=== PATIENT | female | born 1960 | race Caucasian/White ===

== ENCOUNTER → 2016-05-20 | Outpatient (CLI) | payer OTHER ==
[~2016-05-20] MED LIST: ATV1 PO; BUDESUS; CINN1CAP2 PO; ESTR0.07 TD; FEXO1TAB46 PO; IMT50 PO; OLIV1OIL5 PO; OMEGCAP2 PO; [UNRECOGNIZED DRUG - CODE] PO; [UNRECOGNIZED DRUG - OTHER] PO
[2016-05-20 09:33] LABS: MEAN CELL VOLUME 95.7 fL (80-100); MEAN CORPUSCULAR HEMOGLOBIN 32.7 pg (25-34); MEAN CORPUSCULAR HGB CONC 34.2 g/dl (32-36); MEAN PLATELET VOLUME 10.5 fL (7.4-10.4); PLATELET COUNT 223 K/uL (130-400); RED BLOOD COUNT 3.97 M/uL (4.2-5.4); WHITE BLOOD COUNT 4.38 K/uL (4.8-10.8)
[2016-05-20 09:45] LABS: ALT/SGPT 28 U/L (12-78); BLOOD UREA NITROGEN 13 mg/dl (7-18); CARBON DIOXIDE 27 mmol/L (21-32); CHLORIDE 105 mmol/L (98-107); CHOLESTEROL 207 mg/dl (0-200); GLUCOSE 95 mg/dl (70-99); POTASSIUM 4.1 mmol/L (3.5-5.1); SODIUM 140 mmol/L (136-145); TRIGLYCERIDES 134 mg/dl (0-150); VERY LOW DENSITY LIPOPROT CALC 27 mg/dl
[2016-05-20 09:49] LABS: ALB/GLOB RATIO 1.1 (0.9-2); ALKALINE PHOSPHATASE 59 U/L (45-117); AST/SGOT 18 U/L (15-37); CHOLESTEROL/HDL RATIO 2.8; HDL CHOLESTEROL 75 mg/dl; LDL CHOLESTEROL CALCULATED 105 mg/dl
== END | disposition home or self-care (01) ==
LOC: C.LAB1850 07:06
PROVIDERS: ATTEND Family Medicine
DX: Z00.00 Encounter for general adult medical examination without abnormal findings (principal); Z13.220 Encounter for screening for lipoid disorders

== ENCOUNTER → 2016-08-02 | Outpatient (CLI) | payer OTHER | END | disposition home or self-care (01) | LOC: C.PAPS 14:49 | PROVIDERS: ATTEND Obstetrics & Gynecology | DX: Z12.4 Encounter for screening for malignant neoplasm of cervix (principal) ==

== ENCOUNTER → 2016-08-02 | Outpatient (CLI) | payer OTHER | END | disposition home or self-care (01) | LOC: C.LAB1850 11:26 | PROVIDERS: ATTEND Family Medicine | DX: Z11.59 Encounter for screening for other viral diseases (principal) ==

== ENCOUNTER → 2016-08-27 | Outpatient (CLI) | payer OTHER ==
--- NOTE | 2016-08-27 15:24 | MAMMOGRAPHY REPORT ---
BILATERAL DIGITAL SCREENING MAMMOGRAM TOMOSYNTHESIS WITH CAD: 08/27/2016 TECHNIQUE: Breast tomosynthesis in addition to standard 2D mammography was performed. Current study was also evaluated with a Computer Aided Detection (CAD) system. COMPARISON: Comparison is made to exams dated: 08/27/2015 mammogram, 04/30/2013 mammogram, 04/26/2012 mammogram, 11/20/2010 mammogram, 11/17/2009 mammogram - [facility], and 08/14/2008. BREAST COMPOSITION: The tissue of both breasts is heterogeneously dense, which may obscure small ma sses. FINDINGS: No suspicious masses, calcifications, or areas of architectural distortion are noted in e ither breast. There has been no significant interval change compared to prior exams. IMPRESSION: ACR BI-RADS CATEGORY 1: NEGATIVE There is no mammographic evidence of malignancy. A 1 year screening mammogram is recommended. The p atient will receive written notification of the results. Approximately 10% of breast cancers are not detected with mammography. A negative mammographic repor t should not delay biopsy if a clinically suggestive mass is present. Elaina Montoya M.D. /:08/27/2016 14:48:00 Automation And Controls Manager: Natalie FAROOQ(Juana)(Best), [facility] letter sent: Normal 1/2 BI-RADS Code: ACR BI-RADS Category 1: Negative
== END | disposition home or self-care (01) ==
LOC: C.MAMM 13:19
PROVIDERS: ATTEND Obstetrics & Gynecology
DX: Z12.31 Encounter for screening mammogram for malignant neoplasm of breast (principal)

== ENCOUNTER → 2017-08-10 | Outpatient (CLI) | payer OTHER | END | disposition home or self-care (01) | LOC: C.PAPS 11:30 | PROVIDERS: ATTEND Obstetrics & Gynecology | DX: Z12.4 Encounter for screening for malignant neoplasm of cervix (principal) ==

== ENCOUNTER 2019-04-30 07:47 | Observation (INO) ==
--- NOTE | 2019-04-06 08:59 | PAT Medication Instructions ---
Medication Instructions Date of Service April 06, 2019 Home Medications Medication Instructions Recorded lorazepam 1 mg tablet 1 mg PO HS PRN #30 tab 03/16/19 sumatriptan succinate 50 mg tablet 50 mg PO Q2H PRN #9 tab 03/16/19 cholecalciferol (vitamin D3) 25 mcg (1,000 unit) capsule 1,000 mcg PO HS conjugated estrogens 0.3 mg tablet 0.3 mg PO QAM progesterone micronized 100 mg capsule 100 mg PO QAM lorazepam 1 mg tablet 1 mg PO HS PRN sumatriptan succinate 50 mg tablet 50 mg PO Q2H PRN Calcium 600 1,200 mg PO HS Cbd Oil 1 dose SUBLINGUAL QAM Juice Plus 3 tab PO BID cinnamon bark [Cinnamon] 500 mg PO QAM coQ10 (ubiquinol) 100 mg PO HS coconut oil 1,000 mg PO HS glucos sul [id number]-vby-syvee-C-Mn [Glucosamine Chondroitin] 1 cap PO BID ibuprofen [Advil] 400 mg PO Q6H PRN lactobacillus combination no.4 [Probiotic] 3,000 mmu cells PO QAM magnesium oxide 400 mg PO HS naproxen sodium [Aleve] 440 mg PO DAILY PRN omega 6-aow-nje-fish oil [Fish Oil] 1 cap PO HS vitamin B complex 1 tab PO HS ASK your surgeon for instructions naproxen sodium [Aleve] 440 mg PO DAILY PRN conjugated estrogens 0.3 mg tablet 0.3 mg PO QAM progesterone micronized 100 mg capsule 100 mg PO QAM STOP taking 2 weeks before surgery (or as soon as possible if surgery is within 2 weeks) Juice Plus 3 tab PO BID cinnamon bark [Cinnamon] 500 mg PO QAM coQ10 (ubiquinol) 100 mg PO HS coconut oil 1,000 mg PO HS glucos sul [id number]-ikp-pizjr-C-Mn [Glucosamine Chondroitin] 1 cap PO BID omega 1-qni-jge-fish oil [Fish Oil] 1 cap PO HS DO NOT take the morning of surgery lactobacillus combination no.4 [Probiotic] 3,000 mmu cells PO QAM Cbd Oil 1 dose SUBLINGUAL QAM Take morning of surgery With a small sip of water, OTHERWISE NOTHING TO EAT OR DRINK AFTER MIDNIGHT: sumatriptan succinate 50 mg tablet 50 mg PO Q2H PRN (if needed) Take evening before surgery cholecalciferol (vitamin D3) 25 mcg (1,000 unit) capsule 1,000 mcg PO HS lorazepam 1 mg tablet 1 mg PO HS PRN (if needed) sumatriptan succinate 50 mg tablet 50 mg PO Q2H PRN (if needed) Calcium 600 1,200 mg PO HS magnesium oxide 400 mg PO HS vitamin B complex 1 tab PO HS Other Notes If you have any questions please call us at [phone] or [phone] or [phone] or [phone]
--- NOTE | 2019-04-09 09:53 | Anesthesiology Consultation ---
Date of Service April 09, 2019 Assessment & Plan (1) Encounter for pre-operative examination: - Awaiting review of preop testing (labs, CXR). - PCP: 04/02/19: "Pending results of the patient's blood work I feel that she is within acceptable medical risk for her procedure scheduled on 04/30/2019." Chart Review Chart Review: Patient seen in Pre Admission Testing Teaching & Discussion Pre-Anesthesia Teaching/Discussion Notes: Instructed NPO after midnight before surgery,except medications with 15 cc of water. Medication instructions provided according to the PAT guidelines. History Surgery Operation Date: 04/30/19 12:20 Proposed Procedures p Right Total Knee Arthroplasty - Earnest S Christian Height/Weight Height: 5 ft 7.5 in Weight: 89.6 kg Allergies Allergy/AdvReac Type Severity Reaction Status Date / Time Penicillins Allergy Intermediate SWELLING,HI Verified 04/05/19 09:48 VES adhesive Allergy Unknown SKIN Verified 04/05/19 09:48 IRRITATION WITH BANDAIDS FRUIT Allergy Unknown RAW STONE Uncoded 04/05/19 09:48 FRUIT-SWELLING, HIVES Medications Home Medications Medication Instructions Recorded Confirmed Last Taken cholecalciferol (vitamin D3) 25 1,000 mcg PO HS 03/15/19 04/05/19 Unknown mcg (1,000 unit) capsule conjugated estrogens 0.3 mg tablet 0.3 mg PO QAM 03/15/19 04/05/19 Unknown progesterone micronized 100 mg 100 mg PO QAM 03/15/19 04/05/19 Unknown capsule lorazepam 1 mg tablet 1 mg PO HS PRN #30 tab 03/16/19 04/05/19 Unknown sumatriptan succinate 50 mg tablet 50 mg PO Q2H PRN #9 tab 03/16/19 04/05/19 Unknown Calcium 600 1,200 mg PO HS 04/05/19 04/05/19 Unknown Cbd Oil 1 dose SUBLINGUAL QAM 04/05/19 04/05/19 Unknown Juice Plus 3 tab PO BID 04/05/19 04/05/19 Unknown cinnamon bark [Cinnamon] 500 mg PO QAM 04/05/19 04/05/19 Unknown coQ10 (ubiquinol) 100 mg PO HS 04/05/19 04/05/19 Unknown coconut oil 1,000 mg PO HS 04/05/19 04/05/19 Unknown glucos sul 3KOq-dgd-odiwd-C-Mn 1 cap PO BID 04/05/19 04/05/19 Unknown [Glucosamine Chondroitin] ibuprofen [Advil] 400 mg PO Q6H PRN 04/05/19 04/05/19 Unknown lactobacillus combination no.4 3,000 mmu cells PO QAM 04/05/19 04/05/19 Unknown [Probiotic] magnesium oxide 400 mg PO HS 04/05/19 04/05/19 Unknown naproxen sodium [Aleve] 440 mg PO DAILY PRN 04/05/19 04/05/19 Unknown omega 5-nat-ewe-fish oil [Fish Oil] 1 cap PO HS 04/05/19 04/05/19 Unknown vitamin B complex 1 tab PO HS 04/05/19 04/05/19 Unknown Past Medical History Medical History Arthritis Insomnia Migraine Exercise / Class Metabolic Activity II 4-5 Yardwork/Stairs/Walk up hill Past Family History Family History Mother Diabetes Father Atrial fibrillation Heart disease Osteoarthritis Family history of reaction to anesthesia PONV Sister No problems noted. Sister Hypothyroidism Past Surgical History Surgical History History of colonoscopy History of mandibular surgery "WIRED SHUT" (2/2 MALOCCLUSION) S/P tonsillectomy Past Anesthesia History No Hx of Anesthesia Complications (but patient reports "sensitive stomach") and No Family Hx of Anesthesia Complications History of PONV No Hx of PONV and No Hx of Motion Sickness Social History Smoking Status: Never smoker Do You Dip or Chew Tobacco: No Hx Alcohol Use: Yes Alcohol type: wine and hard liquor alcohol intake frequency: a few times a week Hx Substance Use: Yes substance use type: other Substance Use Type Other:: OTC CBD OIL SUBLINGUAL QAM Review of Systems Patient denies chest pain, shortness of breath, dyspnea on exertion, reflux, cough, wheezing, palpitations. Physical Exam Vital Signs VITALS BP 107/73 P 74 TEMP 98.3 SP02 97%RA RESP 16 PHYSICAL Full neck and c-spine range of motion. Full TMJ range of motion. TMD 3 finger breaths Mallampati Score 2 Dentition: intact, 4 crowns, implant on upper front left side tooth Lungs: clear throughout to auscultation Cardiac: regular rate and rhythm, no murmurs noted Spine: normal Carotid arteries: negative bruit Extremities: no edema Testing Laboratory Results 04/02/19 WBC 4.91 H/H 13.9/41.7 PLATELETS 255 SODIUM 138 POTASSIUM 4.0 CHLORIDE 104 CO2 29 BUN 14 CREATININE 0.89 GLUCOSE 95 TSH 2.910 Electrocardiogram Date: 04/02/19 SR at 64bpm.
[2019-04-09 10:32] LABS: Appearance Urine Clear (Clear); Bilirubin Urine Negative (Negative); Blood Urine Negative (Negative); Color Urine Yellow; Glucose Urine UA Negative (Negative); Ketones Urine Negative (Negative); Leukocyte Esterase Urine Negative (Negative); Nitrite Urine Negative (Negative); Protein Urine Negative (Negative); Specific Gravity Urine 1.007 (1.000-1.030); Urobilinogen Urine Negative (Negative); pH Urine 6.5 (4.5-7.5)
--- NOTE | 2019-04-09 10:36 | XRay Report ---
XR chest Pre-admission PA/Lat CLINICAL HISTORY: Preoperative chest COMPARISON STUDY: No previous studies for comparison. FINDINGS: The cardiac and mediastinal contours are normal. There is no evidence of focal pulmonary co nsolidation. There is no evidence of failure. No pleural effusions are visualized.[ IMPRESSION: No active disease in the chest. ACT 112: Negative or not required by law. Electronically signed by: Lalit Scanlon M.D. 04/09/2019 10:35 AM
[2019-04-09 10:42] LABS: Partial Thromboplastin Ratio 0.8; Prothrombin Time 10.3 Seconds (9.0-12.0)
[2019-04-09 13:04] LABS: Albumin Level 3.7 gm/dl (3.4-5.0); BUN Creatinine Ratio 18.9 (10-20); Calcium 9.4 mg/dl (8.5-10.1); Creatinine Clr Calc Pharmacy 78.4 ml/min; Est GFR (African American) 79.6; Est GFR (Non-African American) 68.7; Potassium 4.3 mmol/L (3.5-5.1)
[2019-04-09 13:05] LABS: Albumin Globulin Ratio 0.9 (0.9-2); Bilirubin,Total 0.6 mg/dl (0.2-1); Globulin 3.9 gm/dl (2.5-4.0); Total Protein 7.6 gm/dl (6.4-8.2)
--- NOTE | 2019-04-27 13:16 | History & Physical Report ---
Date of Service April 27, 2019 Assessment & Plan (1) Degenerative joint disease of right knee: plan is to be admitted and undergo right tka. Pt plans on home discharge History of Present Illness Chief Complaint: right knee pain Primary Care Provider: Gloria Cotto MD Pt has had right knee pain for years. cant do adls. limping constantly. has tried nsaids and PT without relief. Allergies Allergy/AdvReac Type Severity Reaction Status Date / Time Penicillins Allergy Intermediate SWELLING,HI Verified 04/05/19 09:48 VES adhesive Allergy Unknown SKIN Verified 04/05/19 09:48 IRRITATION WITH BANDAIDS FRUIT Allergy Unknown RAW STONE Uncoded 04/05/19 09:48 FRUIT-SWELLING, HIVES Home Medications Home Medications Medication Instructions Recorded Confirmed Type cholecalciferol (vitamin D3) 25 1,000 mcg PO HS 03/15/19 04/05/19 History mcg (1,000 unit) capsule conjugated estrogens 0.3 mg tablet 0.3 mg PO QAM 03/15/19 04/05/19 History progesterone micronized 100 mg 100 mg PO QAM 03/15/19 04/05/19 History capsule lorazepam 1 mg tablet 1 mg PO HS PRN #30 tab 03/16/19 04/05/19 Rx sumatriptan succinate 50 mg tablet 50 mg PO Q2H PRN #9 tab 03/16/19 04/05/19 Rx Calcium 600 1,200 mg PO HS 04/05/19 04/05/19 History Cbd Oil 1 dose SUBLINGUAL QAM 04/05/19 04/05/19 History Juice Plus 3 tab PO BID 04/05/19 04/05/19 History cinnamon bark [Cinnamon] 500 mg PO QAM 04/05/19 04/05/19 History coQ10 (ubiquinol) 100 mg PO HS 04/05/19 04/05/19 History coconut oil 1,000 mg PO HS 04/05/19 04/05/19 History glucos sul 9CCb-mks-bazfk-C-Mn 1 cap PO BID 04/05/19 04/05/19 History [Glucosamine Chondroitin] ibuprofen [Advil] 400 mg PO Q6H PRN 04/05/19 04/05/19 History lactobacillus combination no.4 3,000 mmu cells PO QAM 04/05/19 04/05/19 History [Probiotic] magnesium oxide 400 mg PO HS 04/05/19 04/05/19 History naproxen sodium [Aleve] 440 mg PO DAILY PRN 04/05/19 04/05/19 History omega 2-lxh-ung-fish oil [Fish Oil] 1 cap PO HS 04/05/19 04/05/19 History vitamin B complex 1 tab PO HS 04/05/19 04/05/19 History Past Med/Surg History Medical History Arthritis Insomnia Migraine Surgical History History of colonoscopy History of mandibular surgery "WIRED SHUT" (2/2 MALOCCLUSION) S/P tonsillectomy Family History Mother Diabetes Father Atrial fibrillation Heart disease Osteoarthritis Family history of reaction to anesthesia PONV Sister No problems noted. Sister Hypothyroidism Social History (Updated 03/16/19 @ 15:38 by Heidi Cevallos) Preferred Language: Korean Communication Ability: Effective Visual Impairment: No Limitations Hearing Ability: Normal Liquor Tester Required: No Beliefs That Will Affect Care: None marital status: Current Living Situation: Spouse current occupational status: employed current occupation: Program Strategist Other Information That Helps Us Care for You: No Feels Safe at Home: Yes Safety Concerns: Feels Safe At This Time Smoking Status: Never smoker Do You Dip or Chew Tobacco: No ; Second Hand Exposure: No ; Hx Alcohol Use: Yes Alcohol type: wine and hard liquor Alcohol Intake Frequency: Weekly Hx Substance Use: Yes substance use type: other Substance Use Type Other:: OTC CBD OIL SUBLINGUAL QAM Dental Care, Regularly: Yes Physical Activity Frequency: 3-4 Times per Week Seatbelt Use: always Sunscreen Use: Yes Review of Systems All systems reviewed & are unremarkable except as noted in HPI & below Physical Exam Constitutional: WD/WN, vitals as above Neck: trachea midline, no thyromegaly Respiratory: normal respiratory effort, lungs clear to auscultation Cardiovascular: RRR, no murmur, no edema Gastrointestinal (Abdomen): normal bowel sounds, soft, nontender, no hepatosplenomegaly Musculoskeletal: Knee: + limited ROM of knee, + knee ROM with crepitation, + joint line tenderness and + varus alignment
[~2019-04-30 07:47] MED LIST changes: +ACETAMINOPHEN 500 MG TAB PO SCH; -ATV1 PO; -BUDESUS; +BUPIVACAINE 0.5 % 5 MG/1 ML PF 10ML VIAL ONE; +CEFAZOLIN 2000MG 2,000 MG/15 ML SYR IV SCH; -CINN1CAP2 PO; +CeleBREX 200 MG CAP PO SCH; -ESTR0.07 TD; +FAMOTIDINE 20 MG TAB PO SCH; -FEXO1TAB46 PO; -IMT50 PO; +LR 500ML BOLUS, THEN 15ML/HR IV SCH; +METOCLOPRAMIDE HCL 10 MG TABLET PO SCH; -OLIV1OIL5 PO; -OMEGCAP2 PO; +ROPIVACAINE 0.5% 5 MG/ML 30 ML VIAL ONE; +ROPIVACAINE 0.5% HCL/PF 150 MG, BUPIVACAINE 0.5% MPF 30 ML, EPINEPHrine 30MG/30ML (OR U... INSTIL SCH; +TRANEXAMIC ACID / 0.7% NACL 1,000 MG/100 ML BAG IV SCH; +TRANEXAMIC ACID 1,000 MG **IV Intra-op IV SCH; -[UNRECOGNIZED DRUG - CODE] PO; -[UNRECOGNIZED DRUG - OTHER] PO; +dexAMETHasone 4 MG TAB PO SCH
[2019-04-30] MEDS ORDERED: LIDOCAINE HCL 2% 2 ML VIAL/AMP(20MG/ML) INFIL ONE (08:42)
[2019-04-30] MEDS ORDERED: PROPOFOL IV EMULSION 10 MG/ML 20 ML VIAL IV ONE ×2 (08:42→11:25)
[2019-04-30] MEDS ORDERED: MIDAZOLAM HCL 1 MG/ML 2ML VIAL ONE ×2 (08:43→10:34)
--- NOTE | 2019-04-30 09:16 | History & Physical Bridge Note ---
Date of Service April 30, 2019 History & Physical Bridge Note I have examined the patient, reviewed the History & Physical and in the interval since the performance of the History & Physical I have noted the following changes of clinical significance: no changes noted
[2019-04-30] MEDS ORDERED: HYDROmorphone INJ 1 MG/ML SYRINGE IV PRN (09:22)
[2019-04-30] MEDS ORDERED: KETOROLAC 30 MG/ML VIAL IV PRN (09:22)
[2019-04-30] MEDS ORDERED: ePHEDrine sulfate 50 MG/ML AMP IV PRN (09:22)
[2019-04-30] MEDS ORDERED: ONDANSETRON INJ 2 MG/ML 2 ML VIAL IV PRN ×2 (09:22→13:22)
[2019-04-30] MEDS ORDERED: ATROPINE SULFATE 0.1 MG/ML 10ML SYR IV PRN (09:22)
[2019-04-30] MEDS ORDERED: CEFAZOLIN 2,000 MG/15 ML IV PUSH IV ONE (09:28)
[2019-04-30] MEDS ORDERED: CEFAZOLIN 2000MG 2,000 MG/15 ML SYR IV ONE (09:32)
[2019-04-30] MEDS ORDERED: BACITRACIN INJ 50,000 UNIT VIAL ONE ×2 (09:49→10:02)
[2019-04-30] MEDS ORDERED: ORTHO JOINT ANESTHETIC ONE (09:49)
[2019-04-30] MEDS ORDERED: ePHEDrine sulfate 50 MG/ML SYR ONE (11:08)
--- NOTE | 2019-04-30 11:23 | Operative Report ---
Post Operative Report Pre & Post Diagnosis Operation Date: 04/30/19 10:45 Pre-Op Diagnosis: Right Knee Osteroarthritis Post-Op Diagnosis: Right Knee Osteroarthritis I identified the patient and participated in the time-out.: Yes Procedure Operation Date: 04/30/19 10:45 Actual Procedures p Right Total Knee Arthroplasty(Right) - Earnest Gonzales Surgeon Earnest Gonzales Senior Asset Manager Anshul Luo PA-C Estimated Blood Loss 20 Findings Consistent with Post-Op Diagnosis Specimens None Complications none Disposition Disposition: Recovery Room Description of Procedure IMPLANTS USED: [employer] journey 2 knee size 4 cemented femoral component, size 2 tibial component, a size 9 PS insert and a size 32 all polyethylene patella INDICATIONS: Mrs. Ball is a pleasant (male/female) who has unfortunately failed all forms of conservative measures. Therefore, they have decided to undergo elective surgical intervention. All risks and benefits of the surgery were discussed with the patient and the family in entirety. PROCEDURE: The patient was brought to the operating room and properly identified by myself, anesthesia, and staff. Patient was given a spinal anesthesia and placed on the operating table in the supine position. Tourniquets were applied to the right upper thigh. The leg was then prepped and draped in usual sterile fashion. We made a standard midline approach over the patella and dissected down through the subcutaneous tissue to identify the capsule and performed a medial capsulotomy with the patella everted and the knee flexed.The patient matched implant was then put onto the femur. The femur measured to be a size #4. This was then put into place. We made the appropriate cuts and then placed a retractor behind the proximal tibia to retract anteriorly. We then placed the patient matched knee implant on the tibia. It measured to be a size #2. A size #2 guide was then put in place. We used the tibial punch then put the trial components into place. We had very good range of motion, excellent stability, and excellent patella tracking. We removed the trial components and irrigated the wound. We impacted the components in place using antibiotic cement. All excess cement was removed. We then irrigated the wound once more. We closed the capsule with 0 PDS suture, deep dermis and 2-0 Vicryl, and finally the skin with mohit. A sterile dressing was applied. The patient was taken to the recovery room in stable condition. Due to the complex nature of the procedure, the entire surgery was performed with the operational assistance of Anshul Luo PA-C. The golf course assistant was under direct supervision, was involved in the actual performance of all aspects of the surgical procedure including hemostasis, tissue retraction and incision, instrument management, patient positioning, and wound closure. I attest to the content of the Intraoperative Record and any orders documented therein. Any exceptions are noted below.
[2019-04-30] MEDS ORDERED: ONDANSETRON INJ 2 MG/ML 2 ML VIAL ONE (11:47)
--- NOTE | 2019-04-30 12:42 | Anesthesiology Progress Note ---
Date of Service April 30, 2019 Anesthesia Post Procedure Vital Signs Vital Signs: Temp Pulse Pulse Resp BP Pulse Ox 04/30/19 12:30 75 17 101/64 95 04/30/19 12:20 68 14 98/61 L 96 04/30/19 12:10 74 21 99/61 L 97 04/30/19 12:00 77 16 96/59 L 94 04/30/19 11:54 36.0 C L 84 18 95/56 L 94 04/30/19 08:41 36.8 C 90 20 133/81 96 Pain Intensity Right Knee: Pain Intensity: 0 Transfer of Care Handoff Completed per policy Notes Mental Status: alert / awake / arousable Patient Amnestic to Procedure: Yes Nausea / Vomiting: adequately controlled Pain: adequately controlled Airway Patency, RR, SpO2: stable & adequate BP & HR: stable & adequate Hydration State: stable & adequate Neuraxial Anesthesia: was administered and sensory block is resolving Anesthetic Complications: no major complications apparent
[2019-04-30] MEDS ORDERED: SUMAtriptan succinate 50 MG TAB PO PRN (13:22)
[2019-04-30] MEDS ORDERED: METOCLOPRAMIDE HCL INJ 5 MG/ML 2 ML VIAL IV PRN (13:22)
[2019-04-30] MEDS ORDERED: NALOXONE HCL 0.4 MG/1 ML VIAL/CARP IV PRN (13:22)
[2019-04-30] MEDS ORDERED: MAGNESIUM HYDROXIDE SUSP 30 ML UDC PO PRN (13:22)
[2019-04-30] MEDS ORDERED: bisacodyL 10 MG SUPP PR PRN (13:22)
[2019-04-30] MEDS ORDERED: SODIUM CHLORIDE 0.9% 1000ML 1,000 ML IV SCH (13:45)
[2019-04-30] MEDS ORDERED: LORazepam 1 MG TAB PO PRN (13:47)
[2019-04-30] MEDS: ACETAMINOPHEN 500 MG TAB PO SCH ×2 (14:06→21:06)
[2019-04-30] MEDS ORDERED: TRANEXAMIC ACID / 0.7% NACL 1,000 MG/100 ML BAG IV SCH (17:20)
[2019-04-30] MEDS ORDERED: Nursing to Pharmacy Communication ONE (18:03)
[2019-04-30] MEDS: OXYCODONE HCL IR 5 MG TAB (IMMEDIATE RELEASE) PO PRN ×2 (19:50→20:44)
[2019-04-30] MEDS: CEFAZOLIN 2000MG 2,000 MG/15 ML SYR IV SCH (19:51)
[2019-04-30] MEDS: ASPIRIN 81 MG ECTAB PO SCH (20:15)
[2019-04-30] MEDS: DOCUSATE SODIUM 100 MG CAP PO SCH (20:15)
[2019-04-30] MEDS ORDERED: MAGNESIUM OXIDE 400 MG TAB PO SCH (21:00)
[2019-04-30] MEDS ORDERED: SENNA 8.6 MG TAB PO SCH (21:00)
[2019-05-01] MEDS: CEFAZOLIN 2000MG 2,000 MG/15 ML SYR IV SCH (01:47)
[2019-05-01] MEDS: OXYCODONE HCL IR 5 MG TAB (IMMEDIATE RELEASE) PO PRN ×3 (01:51→12:02)
[2019-05-01] MEDS: ACETAMINOPHEN 500 MG TAB PO SCH ×2 (05:10→13:38)
[2019-05-01 05:41] LABS: Hematocrit (blood only) 35.1 % (37-47); Hemoglobin 11.7 g/dL (12.0-16.0); Mean Corpuscular Hgb Conc 33.3 g/dL (32-36); Mean Corpuscular Volume 95.9 fL (80-100); Mean Platelet Volume 9.8 fL (7.4-10.4); Platelet Count 241 K/uL (130-400); RDW Standard Deviation 45.3 fL (36.4-46.3); Red Blood Count 3.66 M/uL (4.2-5.4); White Blood Count 9.96 K/uL (4.8-10.8)
[2019-05-01 06:11] LABS: BUN Creatinine Ratio 15.9 (10-20); Calcium 8.7 mg/dl (8.5-10.1); Creatinine Clr Calc Pharmacy 84.1 ml/min; Est GFR (African American) 87.5; Est GFR (Non-African American) 75.5
[2019-05-01] MEDS ORDERED: dexAMETHasone 10 MG in SYRINGE 0 ML IV SCH (08:00)
[2019-05-01] MEDS: DOCUSATE SODIUM 100 MG CAP PO SCH (08:03)
[2019-05-01] MEDS: ASPIRIN 81 MG ECTAB PO SCH (08:04)
--- NOTE | 2019-05-01 08:09 | Anesthesiology Progress Note ---
Date of Service May 01, 2019 Anesthesia Post Procedure Vital Signs Vital Signs: Temp Pulse Pulse Resp BP Pulse Ox 05/01/19 07:24 36.7 C 60 16 112/67 97 05/01/19 04:11 36.4 C L 60 17 126/71 94 04/30/19 23:01 36.6 C 62 18 118/68 96 04/30/19 19:14 36.6 C 74 16 115/69 95 04/30/19 15:59 36.4 C L 72 16 102/64 96 04/30/19 15:00 36.5 C 73 16 104/66 98 04/30/19 14:00 80 17 110/70 97 04/30/19 13:30 68 18 107/67 97 04/30/19 13:00 37.1 C 78 15 99/60 L 99 04/30/19 12:41 36.3 C L 73 20 101/62 96 04/30/19 12:30 75 17 101/64 95 04/30/19 12:20 68 14 98/61 L 96 04/30/19 12:10 74 21 99/61 L 97 04/30/19 12:00 77 16 96/59 L 94 04/30/19 11:54 36.0 C L 84 18 95/56 L 94 04/30/19 08:41 36.8 C 90 20 133/81 96 Pain Intensity Right Knee: Pain Intensity: 4 Notes Mental Status: alert / awake / arousable Nausea / Vomiting: adequately controlled Pain: adequately controlled Airway Patency, RR, SpO2: stable & adequate BP & HR: stable & adequate Hydration State: stable & adequate Neuraxial Anesthesia: was administered and sensory block resolved Anesthetic Complications: no major complications apparent and Pt Satisfied with anesthetic care
--- NOTE | 2019-05-01 08:38 | Orthopedic Progress Note ---
Date of Service May 01, 2019 Assessment & Plan (1) Degenerative joint disease of right knee: Postop day 1 status post right total knee arthroplasty. PT/OT protocols. Weightbearing as tolerated. DVT prophylaxis with SCDs, aspirin. Pain management as written. Discharge planning-patient planning for home health services upon discharge. Subjective Postop day 1 Patient is currently sitting up at the bedside. Awake and alert. She states she feels well and her pain is controlled. Denies shortness of breath, chest pain, lightheadedness. She is hoping to go home today. Physical Exam Physical Exam: Patient is are clean, dry, and intact. Calves are soft and nontender. Neurovascular is intact. Toes are mobile. She has good dorsiflexion/plantarflexion on the right foot and ankle. Results & Data ([facility]) Vital Signs (Past 12 Hours) Vital Signs Temp Pulse Resp BP Pulse Ox 05/01/19 07:24 36.7 C 60 16 112/67 97 05/01/19 04:11 36.4 C L 60 17 126/71 94 04/30/19 23:01 36.6 C 62 18 118/68 96 Laboratory Results Laboratory Results WBC 9.96 K/uL (4.8-10.8) 05/01/19 05:05 RBC 3.66 M/uL (4.2-5.4) L 05/01/19 05:05 Hgb 11.7 g/dL (12.0-16.0) L 05/01/19 05:05 Hct 35.1 % (37-47) L 05/01/19 05:05 MCV 95.9 fL (80-100) 05/01/19 05:05 MCH 32.0 pg (25-34) 05/01/19 05:05 MCHC 33.3 g/dL (32-36) 05/01/19 05:05 RDW Std Deviation 45.3 fL (36.4-46.3) 05/01/19 05:05 RDW Coeff of Concepcion 13.0 % (11.5-14.5) 05/01/19 05:05 Plt Count 241 K/uL (130-400) 05/01/19 05:05 MPV 9.8 fL (7.4-10.4) 05/01/19 05:05 PT 10.3 Seconds (9.0-12.0) 04/09/19 10:05 INR 1.0 (0.9-1.1) 04/09/19 10:05 APTT 23.0 Seconds (21.0-31.0) 04/09/19 10:05 PTT Ratio 0.8 04/09/19 10:05 Sodium 139 mmol/L (136-145) 05/01/19 05:05 Potassium 4.0 mmol/L (3.5-5.1) 05/01/19 05:05 Chloride 107 mmol/L (98-107) 05/01/19 05:05 Carbon Dioxide 25 mmol/L (21-32) 05/01/19 05:05 Anion Gap 7.0 (3-11) 05/01/19 05:05 BUN 14 mg/dl (7-18) 05/01/19 05:05 Creatinine 0.86 mg/dl (0.6-1.2) 05/01/19 05:05 Est Cr Clr Drug Dosing 84.1 ml/min 05/01/19 05:05 Est GFR ( Amer) 87.5 05/01/19 05:05 Est GFR (Non-Af Amer) 75.5 05/01/19 05:05 BUN/Creatinine Ratio 15.9 (10-20) 05/01/19 05:05 Glucose 124 mg/dl (70-99) H 05/01/19 05:05 Calcium 8.7 mg/dl (8.5-10.1) 05/01/19 05:05 Total Bilirubin 0.6 mg/dl (0.2-1) 04/09/19 10:05 AST 14 U/L (15-37) L 04/09/19 10:05 ALT 31 U/L (12-78) 04/09/19 10:05 Alkaline Phosphatase 84 U/L (45-117) 04/09/19 10:05 Total Protein 7.6 gm/dl (6.4-8.2) 04/09/19 10:05 Albumin 3.7 gm/dl (3.4-5.0) 04/09/19 10:05 Globulin 3.9 gm/dl (2.5-4.0) 04/09/19 10:05 Albumin/Globulin Ratio 0.9 (0.9-2) 04/09/19 10:05 Urine Color Yellow 04/09/19 10:05 Urine Appearance Clear (Clear) 04/09/19 10:05 Urine pH 6.5 (4.5-7.5) 04/09/19 10:05 Ur Specific [place] 1.007 (1.000-1.030) 04/09/19 10:05 Urine Protein Negative (Negative) 04/09/19 10:05 Urine Glucose (UA) Negative (Negative) 04/09/19 10:05 Urine Ketones Negative (Negative) 04/09/19 10:05 Urine Blood Negative (Negative) 04/09/19 10:05 Urine Nitrite Negative (Negative) 04/09/19 10:05 Urine Bilirubin Negative (Negative) 04/09/19 10:05 Urine Urobilinogen Negative (Negative) 04/09/19 10:05 Ur Leukocyte Esterase Negative (Negative) 04/09/19 10:05 Nasal Screen MRSA (PCR) Negative (Negative) 04/09/19 10:05 Blood Type A Positive 04/09/19 10:05 Antibody Screen NEGATIVE 04/09/19 10:05
[2019-05-01] MEDS ORDERED: MULTIVITAMIN TAB PO SCH (09:00)
--- NOTE | 2019-05-01 12:49 | Discharge Summary ---
Date of Service May 01, 2019 Admission HPI Per Admitting Provider Pt has had right knee pain for years. cant do adls. limping constantly. has tried nsaids and PT without relief. Admission Exam Per Admitting Provider Constitutional: WD/WN, vitals as above Neck: trachea midline, no thyromegaly Respiratory: normal respiratory effort, lungs clear to auscultation Cardiovascular: RRR, no murmur, no edema Gastrointestinal (Abdomen): normal bowel sounds, soft, nontender, no hepatosplenomegaly Musculoskeletal: Knee: + limited ROM of knee, + knee ROM with crepitation, + joint line tenderness and + varus alignment Principal Diagnosis DJD right knee Discharge Data Allergies Allergy/AdvReac Type Severity Reaction Status Date / Time Penicillins Allergy Intermediate SWELLING,HI Verified 04/30/19 08:31 VES adhesive Allergy Unknown SKIN Verified 04/30/19 08:31 IRRITATION WITH BANDAIDS chlorhexidine Allergy itching Verified 04/30/19 08:56 and blotchy skin FRUIT Allergy Unknown RAW STONE Uncoded 04/30/19 08:31 FRUIT-SWELLING, HIVES Consultations 04/30/19 13:22 Consult Case Management - Discharge Planning Routine Procedures Performed Operation Date: 04/30/19 10:45 Actual Procedures p Right Total Knee Arthroplasty(Right) - Earnest Hart Ordered Studies 04/30/19 05:00 US - OR guided needle placemen Routine Hospital Course (1) Degenerative joint disease of right knee: Postop day 1 status post right total knee arthroplasty. PT/OT protocols. Weightbearing as tolerated. DVT prophylaxis with SCDs, aspirin. Pain management as written. Discharge planning-patient planning for home health services upon discharge. Patient progressing with physical therapy. Vital signs continue to remain stable. Pain control. Plan for discharge to home. Total Time Total Time Spent Total Time Spent (In Minutes): 5 Discharge Plan Discharge Items Patient Disposition: Home - Home Health Services Reason For Visit: Right Knee Osteroarthritis Discharge Diagnosis: Right Knee Osteoarthritis Activity: Per Instructions section Weightbearing: Full weightbearing Weightbearing Comment: with use of walker Non-emergency contact: Surgeon Call non-emergency contact if: your pain is not controlled, your temperature is above 101.5, your wound has increased redness and your wound has increased drainage Follow-up/Referrals: Gloria Cotto MD [Primary Care Provider] - Diet: Regular Addtl Attending Provider Instructions: PLEASE FOLLOW DR HART'S TOTAL KNEE INSTRUCTIONS WRITTEN. YOU WILL RECIEVE THEM PRIOR TO YOUR DISCHARGE. Your pain medications will be sent to your pharmacy by Dr. Meadows's office. Jessica Wound Vac Dressing - This is a large suction dressing covering your incision. This will help pull any excess drainage from the wound and allow your incision to heal properly. You may shower with this if you can keep the unit outside of the shower. If any bleeding or leakage is noted please call your doctor's office. This will remain on your incision for 7 days and then should be removed. This can be done yourself or by the home nursing staff if applicable. The entire unit is disposable once removed. Once removed, keep incision clean and dry. If redness or drainage is noted, please call your surgeon. Follow up with Dr Hart in 2 weeks. Call for appointment if one has not been made for you. [phone] Pending Studies at Discharge: Yes Studies:: Pathology report Stand-Alone Forms: [facility], Opioid Pain Management, Smoking Cessation Medications and DC Order Prescriptions: New sennosides [Senokot] 8.6 mg Tablet 17.2 mg PO HS PRN (Reason: constipation) Qty: 30 RF: 0 aspirin [Ecotrin Low Strength] 81 mg Tablet,Delayed Release (Dr/Ec) 81 mg PO BID 30 Days Qty: 60 RF: 0 acetaminophen 500 mg Tablet 1,000 mg PO Q8 14 Days Qty: 84 RF: 0 cefadroxil 500 mg capsule 500 mg PO BID Qty: 28 RF: 1 Continued Premarin 0.3 mg tablet 0.3 mg PO QAM RF: 0 cholecalciferol (vitamin D3) 25 mcg (1,000 unit) capsule 1,000 mcg PO HS RF: 0 progesterone micronized 100 mg capsule 100 mg PO QAM RF: 0 sumatriptan succinate 50 mg tablet 50 mg PO Q2H PRN (Reason: migraine headache) Qty: 9 RF: 5 lorazepam 1 mg tablet 1 mg PO HS PRN (Reason: insomnia) Qty: 30 RF: 0 vitamin B complex Tablet 1 tab PO HS RF: 0 cinnamon bark [Cinnamon] 500 mg Capsule 500 mg PO QAM RF: 0 coconut oil 1,000 mg Capsule 1,000 mg PO HS RF: 0 coQ10 (ubiquinol) 100 mg Capsule 100 mg PO HS RF: 0 magnesium oxide 400 mg magnesium Tablet 400 mg PO HS RF: 0 Glucosamine Chondroitin 550-30-1 mg Capsule 1 cap PO BID RF: 0 Juice Plus 3 tab PO BID RF: 0 Probiotic 3 billion cell Capsule 3,000 mmu cells PO QAM RF: 0 Calcium 600 1,200 mg PO HS RF: 0 Discontinued omega 9-stm-isv-fish oil [Fish Oil] 1,000 mg (120 mg-180 mg) Capsule 1 cap PO HS RF: 0 ibuprofen [Advil] 200 mg Tablet 400 mg PO Q6H PRN (Reason: Pain) RF: 0 naproxen sodium [Aleve] 220 mg Capsule 440 mg PO DAILY PRN (Reason: Pain) RF: 0 Cbd Oil 1 dose sublingual QAM RF: 0 ciprofloxacin HCl [Cipro] 500 mg Tablet 500 mg PO BID RF: 0 Discharge Orders: Discharge Order (Routine); Ordered 05/01/19 Ordered By: Anshul Luo Admission Data Admit Date/Time: 04/30/19 11:56 Attending Provider: Earnest Hart Admit Provider: Earnest Hart Primary Care Provider: Gloria Cotto
== END 2019-05-01 14:10 | disposition home health service (06) ==
LOC: ASU 07:47 → 3E 11:56 → INTOOBSV 11:56